=== PATIENT | female | born 1995 | race Caucasian/White ===

== ENCOUNTER 2019-02-15 19:00 | Emergency (ER) | payer OTHER ==
[~2019-02-15] VITALS: Ht 165.1 cm; Wt 86.0 kg
[2019-02-15] MEDS ORDERED: DIPHENHYDRAMINE 50 MG CAPSULE ONE (19:10)
[2019-02-15] MEDS ORDERED: DIPHENHYDRAMINE 50 MG/ML, 1ML ONE (19:13)
--- NOTE | 2019-02-15 19:18 | NUR ---
assessment made. chart up for MD to see.
--- NOTE | 2019-02-15 19:29 | NUR ---
ERP at bedside.
[2019-02-15] MEDS ORDERED: DIPHENHYDRAMINE 50 MG/ML, 1ML IM ONE (19:30)
--- NOTE | 2019-02-15 19:50 | NUR ---
per ERP will observe patient for another 20 mins.
--- NOTE | 2019-02-15 20:10 | NUR ---
patient states feeling much better. no SOB. no swelling noted.
[2019-02-15 20:12] VITALS: BP 121/78
--- NOTE | 2019-02-15 20:12 | NUR ---
patient discharged with prescriptions and instruction. verbalized understanding.
== END 2019-02-15 20:14 | disposition home or self-care (01) ==
LOC: ED 20:00
DX: L50.0 Allergic urticaria (principal); J45.909 Unspecified asthma, uncomplicated
CPT/HCPCS: 96372; 99283; J1200; J7512